=== PATIENT | female | born 1995 | race Native Hawaiian/Other Pacific Islander ===

== ENCOUNTER 2016-07-13 21:05 | Emergency (ER) | payer OTHER ==
[2016-07-13 21:11] VITALS: BP 125/85; PULSE 101; RESP 16; TEMP 98.2; O2SAT 99
--- NOTE | 2016-07-13 21:29 | C.PDOC ---
History Of Present Illness 20 yo female w/o significant PMHx come in for evaluation of URI sx for past 3 days associated with nasal congestion, productive cough with yellow sputum, chest tightness. Pt admits, was unable to sleep last night due to cough. Otherwise, pt denies fever, chills, headache, dizziness, drooling, dysphagia, dyspnea, neck pain, SOB, wheezing, abd. pain, N/V/D, UTI sx, denies recent travel or sick contact. Ambulate to Ed for evaluation, not in any apparent distress. Pt denies control medication use. Time Seen by Provider: 07/13/16 21:13 Chief Complaint (Nursing): Flu-like Symptoms History Per: Patient Onset/Duration Of Symptoms: Gradual Current Symptoms Are (Timing): Still Present Past Medical History Reviewed: Historical Data, Nursing Documentation, Vital Signs Vital Signs: Last Vital Signs Temp 98.2 F 07/13/16 21:08 Pulse 101 H 07/13/16 21:08 Resp 16 07/13/16 21:08 BP 125/85 07/13/16 21:08 Pulse Ox 99 07/13/16 21:31 - Medical History PMH: No Chronic Diseases Denies: Asthma Surgical History: No Surg Hx Family History: States: No Known Family Hx - Social History Hx Alcohol Use: No Hx Substance Use: No - Immunization History Hx Tetanus Toxoid Vaccination: No Hx Influenza Vaccination: No Hx Pneumococcal Vaccination: No Review Of Systems Except As Marked, All Systems Reviewed And Found Negative. Constitutional: Positive for: Chills Eyes: Negative for: Vision Change ENT: Positive for: Nose Discharge, Nose Congestion, Throat Pain, Throat Swelling. Negative for: Ear Discharge Cardiovascular: Negative for: Chest Pain, Palpitations, Edema, Light Headedness Respiratory: Positive for: Cough. Negative for: Shortness of Breath, Wheezing Gastrointestinal: Negative for: Nausea, Vomiting, Abdominal Pain, Diarrhea Genitourinary: Negative for: Dysuria, Frequency, Incontinence Musculoskeletal: Negative for: Neck Pain Skin: Negative for: Rash Neurological: Negative for: Weakness, Numbness, Altered Mental Status, Headache , Dizziness Physical Exam - Physical Exam Appears: Well, Non-toxic, No Acute Distress Skin: Normal Color, Warm, Dry, No Rash Eye(s): bilateral: PERRL Ear(s): Bilateral: Normal Nose: Discharge (B/L nasal congestion with clear rhinorhea) Oral Mucosa: Moist, No Drooling Tongue: Normal Appearing Throat: Erythema (mild B/L), No Exudate, No Drooling Neck: Normal ROM, Trachea Midline, Supple, Other (negative meningeal sign) Cardiovascular: Rhythm Regular Respiratory: No Decreased Breath Sounds, No Accessory Muscle Use, No Stridor, Wheezing (scatteredRight base wheeizng. BS equal B/L.) Gastrointestinal/Abdominal: Soft, No Tenderness, No Distention, No Guarding Back: No CVA Tenderness Extremity: Normal ROM, No Pedal Edema Neurological/Psych: Oriented x3, Normal Speech ED Course And Treatment O2 Sat by Pulse Oximetry: 99 Pulse Ox Interpretation: Normal Progress Note: On re-eval, pt is afebrile , hemodynamicaly stable. PulseOx 99% RA. Neck: (-) meningeal sign. ENT: no acute findings. Lungs: CTA B/L, BS equal B/L. Abd: benign. Pt has clinical findings c/w acute bronchtis. Pt advised. ref. to f/u with PMD in 1`-2 dyas for re-eval. return to ED if any worsening or new changes. Disposition Counseled Patient/Family Regarding: Diagnosis, Need For Followup, Rx Given - Disposition Referrals: [facility] [Outside] Disposition: HOME/ ROUTINE Disposition Time: 21:59 Condition: STABLE Additional Instructions: Take medication as prescribed Encourage fluids Follow up with PM DIN 2-3 days for re-evaluation. Return to ED if any worsening or new changes. Prescriptions: Prednisone [Deltasone] 20 mg PO DAILY #3 tablet Benzonatate [Tessalon Perle] 100 mg PO TID #14 capsule Albuterol HFA [Ventolin HFA 90 mcg/actuation (8 g)] 1 puff IH Q6 #1 inhaler Azithromycin [Zithromax] 250 mg PO DAILY #4 tab Instructions: Acute Bronchitis (ED) - Clinical Impression Clinical Impression: Bronchitis
[2016-07-13] MEDS ORDERED: Albuterol 0.083% Inhal Sol (2.5 mg/3 mL) UD IH STA (21:31)
[2016-07-13] MEDS ORDERED: Albuterol 0.083% Inhal Sol (2.5 mg/3 mL) UD ONE (21:55)
== END 2016-07-13 22:25 | disposition home or self-care (01) ==
LOC: C.ER 21:05
DX: J40 Bronchitis, not specified as acute or chronic (principal)

== ENCOUNTER 2016-09-15 20:47 | Emergency (ER) | payer OTHER ==
[2016-09-15 21:06] VITALS: BP 110/77; PULSE 88; TEMP 98.1
--- NOTE | 2016-09-15 21:18 | C.PDOC ---
History Of Present Illness 20 year old female presents to the ED with complaints of intermittent lower back pain that radiates to buttocks for approximately 4-5 weeks that has worsened today. Patient states she fell while ice skating a few months ago and is unsure if symptoms are related to the fall. She notes performing heavy lifting at work and taking one Aleve today with no relief. Patient denies any recent trauma, bowel or urinary incontinence, extremity weakness or urinary symptoms. Time Seen by Provider: 09/15/16 21:10 Chief Complaint (Nursing): Back Pain History Per: Patient History/Exam Limitations: no limitations Onset/Duration Of Symptoms: Persistent (4-5 weeks) Current Symptoms Are (Timing): Worse Quality Of Discomfort: "Pain" Previous Symptoms: Prior Injury (fallingwhen ice skating a few months ago, but unsure if related to current symptoms. ) Associated Symptoms: denies: Incontinence, New Weakness, New Numbness Recent travel outside of the [place]: No Past Medical History Reviewed: Historical Data, Nursing Documentation, Vital Signs Vital Signs: Last Vital Signs Temp 98.1 F 09/15/16 21:02 Pulse 88 09/15/16 21:02 Resp 20 09/15/16 21:48 BP 110/77 09/15/16 21:02 Pulse Ox - Medical History PMH: No Chronic Diseases Family History: States: Unknown Family Hx - Social History Hx Alcohol Use: No Hx Substance Use: No - Immunization History Hx Tetanus Toxoid Vaccination: No Hx Influenza Vaccination: No Hx Pneumococcal Vaccination: No Review Of Systems Constitutional: Negative for: Fever Gastrointestinal: Negative for: Nausea, Vomiting, Abdominal Pain, Diarrhea, Constipation Genitourinary: Negative for: Dysuria, Frequency, Incontinence, Hematuria, Pelvic Pain Musculoskeletal: Positive for: Back Pain (lower ) Neurological: Negative for: Weakness, Numbness Physical Exam - Physical Exam Appears: Non-toxic, No Acute Distress Skin: Warm, Dry Eye(s): bilateral: Normal Inspection, PERRL, EOMI Neck: Normal ROM, Supple Back: Normal Inspection, No CVA Tenderness, No Vertebral Tenderness, Paraspinal Tenderness (paralumbar tenderness bilaterally ), No Straight Leg Raising Extremity: Normal ROM, No Tenderness, Other (Patient fully ambulatory and good strength of extremities ) Pulses: Left Dorsalis Pedis: Normal, Right Dorsalis Pedis: Normal Neurological/Psych: Oriented x3 Gait: Steady ED Course And Treatment Progress Note: Patient given Motrin and Flexeril by PO and notes improvement of pain. Pt is fully ambulatory at discharge Reassessment Condition: Improved Disposition Counseled Patient/Family Regarding: Diagnosis, Need For Followup - Disposition Referrals: [facility] [Outside] Disposition: HOME/ ROUTINE Disposition Time: 21:40 Condition: STABLE Additional Instructions: Please follow up with with PMD or in our medical clinic Take meds as directed Return to ER if worse Prescriptions: Cyclobenzaprine [Cyclobenzaprine HCl] 10 mg PO HS #10 tab Ibuprofen [Motrin] 600 mg PO Q6H #20 tab Instructions: Lumbar Radiculopathy (ED) - Clinical Impression Clinical Impression: Low back pain - Scribe Statement The provider has reviewed the documentation as recorded by the Scribe Bouchra Cole All medical record entries made by the Scribe were at my direction and personally dictated by me. I have reviewed the chart and agree that the record accurately reflects my personal performance of the history, physical exam, medical decision making, and the department course for this patient. I have also personally directed, reviewed, and agree with the discharge instructions and disposition.
[2016-09-15 21:48] VITALS: RESP 20
== END 2016-09-15 21:48 | disposition home or self-care (01) ==
LOC: C.ER 20:47
DX: M54.5 Low back pain (principal)

== ENCOUNTER 2017-03-15 09:52 | Emergency (ER) | payer OTHER ==
[2017-03-15 10:09] VITALS: O2SAT 100
[2017-03-15] MEDS ORDERED: Sodium Chloride 0.9% 1,000 ML IV STA (10:43)
--- NOTE | 2017-03-15 10:50 | C.PDOC ---
History Of Present Illness 21 y/o F 21 weeks with no complications p/w fever, body aches, nausea, NBNB vomiting x 3 days. Denies sick contacts, recent travel, dysuria, diarrhea, dyspnea. Time Seen by Provider: 03/15/17 10:28 Chief Complaint (Nursing): Fever Past Medical History Vital Signs: Last Vital Signs Temp 99.1 F 03/15/17 12:09 Pulse 96 H 03/15/17 12:09 Resp 18 03/15/17 12:09 BP 104/77 03/15/17 12:09 Pulse Ox 100 03/15/17 12:09 - Medical History PMH: Denies: Asthma Family History: States: Unknown Family Hx - Social History Hx Alcohol Use: No Hx Substance Use: No - Immunization History Hx Tetanus Toxoid Vaccination: No Hx Influenza Vaccination: No Hx Pneumococcal Vaccination: No Review Of Systems Except As Marked, All Systems Reviewed And Found Negative. Respiratory: Negative for: Shortness of Breath Gastrointestinal: Negative for: Abdominal Pain Physical Exam - Physical Exam Additional Physical Exam Comments: Constitutional: No acute distress. Head: Normocephalic. Atraumatic. Eyes: PERRL. ENT: Moist mucous membranes. Neck: Supple. Cardiovascular: Radial pulse 2+ bilaterally. Tachycardic Chest: No tenderness. Respiratory: Clear to auscultation bilaterally. GI: Soft. Nontender. Gravid Uterus Back: No CVA tenderness. Musculoskeletal: No tenderness or swelling of extremities. Skin: No rash. Neurologic: Alert, no focal deficit. ED Course And Treatment - Laboratory Results Result Diagrams: 03/15/17 10:54 03/15/17 10:54 O2 Sat by Pulse Oximetry: 100 (RA) Pulse Ox Interpretation: Normal Medical Decision Making Medical Decision Making: Vital signs normalized. Patient in no acute distress. No ketones on urine. Will discharge home, continue acetaminophen, Tamiflu, oral hydration, f/u OBGYN/PMD, return to ED for worsening vomiting, pain, fever, dyspnea, or any other problem. Disposition - Disposition Disposition: HOME/ ROUTINE Disposition Time: 12:20 Condition: STABLE Prescriptions: Oseltamivir [Tamiflu] 75 mg PO BID #9 cap Instructions: Viral Syndrome (ED) Forms: [employer] (Montenegrin) - Clinical Impression Clinical Impression: Influenza-like illness - Scribe Statement The provider has reviewed the documentation as recorded by the Scribe Maricsa Toribio All medical record entries made by the Yaneli were at my direction and personally dictated by me. I have reviewed the chart and agree that the record accurately reflects my personal performance of the history, physical exam, medical decision making, and the department course for this patient. I have also personally directed, reviewed, and agree with the discharge instructions and disposition.
[2017-03-15] MEDS ORDERED: Sodium Chloride 0.9% 1,000 ML ONE (10:55)
[2017-03-15 11:00] LABS: BASO % 0.3 % (0.0-2.0); EOS # 0.1 K/uL (0.0-0.7); EOS % 0.5 % (0.0-4.0); HEMATOCRIT 30.8 % (34.0-47.0); LYMPH # 1.6 K/uL (1.0-4.3); LYMPH % 13.8 % (20.0-40.0); MEAN CELL VOLUME 86.3 fL (81.0-99.0); MEAN CORPUSCULAR HEMOGLOBIN 29.7 pg (27.0-31.0); MEAN CORPUSCULAR HGB CONC 34.4 g/dL (33.0-37.0); MEAN PLATELET VOLUME 8.3 fL (7.2-11.7); MONO # 1.2 K/uL (0.0-0.8); MONO % 10.3 % (0.0-10.0); RED CELL DISTRIBUTION WIDTH 13.2 % (11.5-14.5); WHITE BLOOD COUNT 11.5 K/uL (4.8-10.8)
[2017-03-15 11:05] LABS: RBC URINE < 1 /hpf (0-3); URINE BACTERIA RARE (<OCC); URINE BILIRUBIN NEGATIVE (NEGATIVE); URINE BLOOD NEGATIVE (NEGATIVE); URINE COLOR Yellow (YELLOW); URINE GLUCOSE (UA) NORMAL (Normal); URINE KETONE NEGATIVE (NEGATIVE); URINE LEUKOCYTE ESTERASE NEG Leu/uL (Negative); URINE PROTEIN NEGATIVE (NEGATIVE); URINE UROBILINOGEN NORMAL mg/dL (0.2-1.0); WBC URINE 1 /hpf (0-5)
[2017-03-15 11:20] LABS: ALKALINE PHOSPHATASE 49 U/L (38-126); ALT/SGPT 25 U/L (9-52); AST/SGOT 25 U/L (14-36); BILIRUBIN,TOTAL 0.5 mg/dL (0.2-1.3); BLOOD UREA NITROGEN 7 mg/dL (7-17); CALCIUM 8.1 mg/dl (8.6-10.4); CARBON DIOXIDE 26 mmol/L (22-30); CHLORIDE 97 mmol/L (98-107); GFR AFRICAN-AMERICAN > 60; GLUCOSE,RANDOM 71 mg/dL (65-105); SODIUM 130 mmol/L (132-148)
[2017-03-15 11:22] LABS: ALB/GLOB RATIO 0.9 (1.0-2.1)
[2017-03-15 12:09] VITALS: BP 104/77; PULSE 96; RESP 18; TEMP 99.1
== END 2017-03-15 12:41 | disposition home or self-care (01) ==
LOC: C.ER 09:52
DX: O26.892 Other specified pregnancy related conditions, second trimester (principal); J11.1 Influenza due to unidentified influenza virus with other respiratory manifestations; Z3A.21 21 weeks gestation of pregnancy
CPT/HCPCS: 80053; 81001; 85025; 87086; 87804; 96360; 99285; J7040

== ENCOUNTER 2017-04-28 06:10 | Emergency (ER) | payer MEDICAID, OTHER ==
[2017-04-28] MEDS ORDERED: Lactated Ringer's 1,000 ML IV ONE (06:40)
[2017-04-28 06:58] VITALS: BMI 22.0
[2017-04-28] MEDS ORDERED: Dextrose 5%/0.9% NS 1,000 ML IV ONE (07:40)
[2017-04-28 08:03] LABS: BASO % 0.1 % (0.0-2.0); EOS # 0.1 K/uL (0.0-0.7); EOS % 0.3 % (0.0-4.0); HEMOGLOBIN 11.3 g/dL (11.0-16.0); LYMPH % 10.7 % (20.0-40.0); MEAN CORPUSCULAR HEMOGLOBIN 27.8 pg (27.0-31.0); MEAN CORPUSCULAR HGB CONC 34.5 g/dL (33.0-37.0); MEAN PLATELET VOLUME 8.4 fL (7.2-11.7); MONO # 1.3 K/uL (0.0-0.8); MONO % 6.8 % (0.0-10.0); NEUT # 15.1 K/uL (1.8-7.0); NEUT % 82.1 % (50.0-75.0); RBC 4.07 Mil/uL (3.80-5.20); RED CELL DISTRIBUTION WIDTH 13.3 % (11.5-14.5)
[2017-04-28 08:07] LABS: MEAN CELL VOLUME 80.7 fL (81.0-99.0); SQUAMOUS EPITHIAL < 1 /hpf (0-5); URINE AMORPHOUS SEDIMENT RARE /ul (<OCC); URINE BILIRUBIN NEGATIVE (NEGATIVE); URINE BLOOD NEGATIVE (NEGATIVE); URINE CLARITY Hazy (Clear); URINE COLOR Yellow (YELLOW); URINE GLUCOSE (UA) NORMAL (Normal); URINE LEUKOCYTE ESTERASE NEG Leu/uL (Negative); URINE NITRATE NEGATIVE (NEGATIVE); URINE PROTEIN NEGATIVE (NEGATIVE); URINE UROBILINOGEN NORMAL mg/dL (0.2-1.0); WHITE BLOOD COUNT 18.4 K/uL (4.8-10.8)
[2017-04-28 08:16] LABS: ALBUMIN 3.4 g/dL (3.5-5.0); ALT/SGPT 15 U/L (9-52); AMYLASE 80 U/L (30-110); AST/SGOT 26 U/L (14-36); BLOOD UREA NITROGEN 6 mg/dL (7-17); CALCIUM 8.7 mg/dl (8.6-10.4); GFR AFRICAN-AMERICAN > 60; GFR NON-AFRICAN AMERICAN > 60; LIPASE 54 U/L (23-300)
[2017-04-28] MEDS ORDERED: Sodium Citrate/Citric Acid 15 ml Sol PO ONE (10:05)
[2017-04-28 14:41] VITALS: BP 106/69; PULSE 86; RESP 20; TEMP 96.7
--- NOTE | 2017-04-29 02:10 | OBHP ---
Datetime: 04/28/2017 07:59 IP Adm Impression: , intrauterine IP Chief Complaint Other: Vomiting since midnight IP Admit Plan: Observation/Evaluation Admit Comment, IP Provider: Patient seen at 0720 hours 21 y.o. , LMP 09/20/16, MAVERICK 06/27/17 EGA 31w 4d c/o vomiting "all night" since midnight. Denies blood in vomitus. Denies headaches, dizziness; feeels a little weak and tired; (+) epigastric pain an d burning sensation. Ate egg salad sandwich from a deli at approximately 1900 hours. Denies fever, chills; no sick contact. No recent travel. 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 Denies STIs; just elegible for Pap PMH: 2017, bronchitis - seen in E.D>; sent home on p.o. antibiotics PSH: denies NKDA Food allergy: seafood = itching to throat, vomiting Meds: PNV Soc Hx: denies tobacco illicit drug or EtOH use. LIves with FOB; together x 1+ years. Works as a [employer] (formerly [employer] Fam Hx: MOther alive 48 - no med issues. Father alive 49 CAD (S/P surgery for "blockage"); pre-DM . No known fam h/o cancer P.E.: as above. Thin, in NAD; appears tired. Awake, alert, oriented to time, person and place. P leasant and cooperative. Accompanied by FOB Assessment: 21 y.o. P0, 31w4d, acute gastroenteritis. Afebrile, vital signs. Category 1 tracing. D/W patient: IVFs, antiemetic, labs. Pt advised, process may proceed to include diarrhea; if this occ urs, allow for increased p.o. intake of fluids such as coconut water, Gatorade to replace electrolyte s. Patient expressed an understanding. Clincally stable. Plan: 1) IVFs 2) Zofran 4 mg IM x 1 3) CBC, Comp panel, amylase, lipase, U/A 4) Observe Addendum: S/P zofran, and IVFs; patient with no further vomiting. C/O mild epigastric discomfort. given bicitra. Tolerated well and discharged home. Advised to eat BRAT-based diet, increase p.o. inta ke of electrolyte rich beverages (coconut water, gatorade) . Keep scheduled appontments. Reviewed S/S PTL. Patient clinicaly stable upon discharge home. Pelvic Type - PN: Adequate Extremities - PN: Normal Abdomen - PN: Normal Back - PN: Normal Breast - PN: Not Done Lungs - PN: Normal Heart - PN: Normal Thyroid - PN: Not Done Neurologic - PN: Normal HEENT - PN: Normal General - PN: Normal FHR - Baseline A Provider: 140 Contraction Comments Provider: 10 minutes Comments, ACOG Physical Exam: Abdomen: Gravid. Soft. Nondistended. Negative Mcfarlane's sign. Minimal m id-epigastric discomfort to deep palpation. Otherwise, non tender. Fundal height 27 cm All other systems reviewed and are negative Gestation - Est Wks by US: 31w 4d EGA AdmitDate IP: 31.3 IP Chief Complaint: Other NICHD Variability Prov Fetus A: Moderate 6-25bpm NICHD Accel Fetus A IP Provider: 15X15 FHR Category Provider Fetus A: Category I NICHD Decel Fetus A IP Provider: None Dilatation, Provider: 0 Effacement, Provider: 0 Station, Provider: floating Genitourinary Exam: Normal DTRs - PN: Not Done
== END 2017-04-28 10:30 | disposition home or self-care (01) ==
LOC: C.EROB 06:10
DX: O99.613 Diseases of the digestive system complicating pregnancy, third trimester (principal); K52.9 Noninfective gastroenteritis and colitis, unspecified; Z3A.31 31 weeks gestation of pregnancy
CPT/HCPCS: 80053; 81001; 82150; 83690; 85025; 96360; 99283; J2405; J7042; J7120

== ENCOUNTER 2017-06-18 13:06 | Emergency (ER) | payer OTHER ==
--- NOTE | 2017-06-18 13:49 | OBDCSUM ---
Datetime: 06/18/2017 13:47 Discharged to, Provider: Home Follow up at, Provider: Clinic Disch Instr Activity: Normal activity Disch Instr Diet: Regular Discharge Instructions, Provider: Routine instructions given Discharge Time: 06/18/2017 13:47 Follow up in weeks, Provider: 06/20/17 Disch Referrals: None Contraception discussed, Prov: No Discharge Comment, Provider: labor precautions given
--- NOTE | 2017-06-18 13:50 | OBHP ---
Datetime: 06/18/2017 13:43 IP Adm Impression: Term, intrauterine IP Admit Plan: Discharge home Admit Comment, IP Provider: 21 y.o. , LMP 09/20/16, MAVERICK 06/27/17 EGA 38.5 wks GA c/o ctx pain ever y 5-10 min 5/10, denies lof, vb, +Fm. pt reports receives are at clinic and is uncomplicated . 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 Denies STIs; just elegible for Pap PMH: 2017, bronchitis - seen in E.D>; sent home on p.o. antibiotics PSH: denies NKDA Food allergy: seafood = itching to throat, vomiting Meds: PNV Soc Hx: denies tobacco illicit drug or EtOH use. LIves with FOB; together x 1+ years. Works as a [employer] @ 38.5 wks GA not in active labor -nst -dc home -labor precautions -has f/u 1 week Pelvic Type - PN: Adequate Extremities - PN: Normal Abdomen - PN: Normal Back - PN: Normal Breast - PN: Not Done Lungs - PN: Normal Heart - PN: Normal Thyroid - PN: Normal Neurologic - PN: Not Done HEENT - PN: Normal General - PN: Normal Presentation-Admit: Vertex FHR - Baseline A Provider: 125 Membranes, Provider: Intact Contraction Comments Provider: q 6 min Gestation - Est Wks by US: 38.5 EGA AdmitDate IP: 38.5 Vital Signs Provider: Reviewed IP Chief Complaint: Uterine contractions NICHD Variability Prov Fetus A: Moderate 6-25bpm NICHD Accel Fetus A IP Provider: Prolonged NICHD Decel Fetus A IP Provider: None Dilatation, Provider: 2 Effacement, Provider: 30 Station, Provider: -3 Genitourinary Exam: Normal DTRs - PN: Normal
--- NOTE | 2017-06-19 12:48 | OBDS ---
DELIVERY PERSONNEL Delivery Doctor: Raghu Loaiza MD Coke Crane Operator: Sarah Caro RN Anesthesiologist: Dr. Angulo Resident: Kristen Yeager student MATERNAL INFORMATION Delivery Anesthesia: Epidural Medications in Delivery: n/a Estimated Blood Loss (ml): 300 Placenta Cultured: No Maternal Complications: None Provider Comments: baby deliverd in lorna. end clean no com LABOR SUMMARY EDC: 06/27/2017 00:00 No. Babies in Womb: 1 Attempted: No Labor Anesthesia: Epidural LABOR INFORMATION Complete Dilatation: 06/19/2017 11:25 Group B Beta Strep: Negative Antibiotics # of Doses: 0 Antibiotics Time of Last Dose: n/a MEMBRANES Membranes Rupture Method: Artificial Rupture of Membranes: 06/19/2017 10:11 Length of Rupture (hrs): 2.37 Amniotic Fluid Color: Clear Amniotic Fluid Amount: Small Amniotic Fluid Odor: None STAGES OF LABOR Stage 2 hrs: 1 Stage 2 min: 8 Stage 3 hrs: 0 Stage 3 min: 2 VAGINAL DELIVERY Episiotomy: Right Mediolateral Laceration Repair: Not Applicable Laceration Repair Note: repaired with 2 vicry and 3 chromic Initial Vag Sponge Count: 10 Initial Vag Sharps Count: 0 Sponge Count Correct: Yes Sharps Count Correct: Yes BABY A INFORMATION Delivery Date/Time: 06/19/2017 12:33 Method of Delivery: Vaginal Born in Route : No : N/A Forceps: N/A Vacuum Extraction: N/A Shoulder Dystocia : No SHOULDER DYSTOCIA BABY A Infant Delivery Date/Time: 06/19/2017 12:33 PRESENTATION/POSITION BABY A Presentation: Cephalic Cephalic Presentation: Face Vertex Position: Left Occipital Posterior Breech Presentation: N/A PLACENTA INFORMATION BABY A Placenta Delivery Time : 06/19/2017 12:35 Placenta Method of Delivery: Spontaneous Placenta Status: Delivered SCORES BABY A Heart Rate 1 min: >100 bpm Resp Effort 1 min: Good Cry Reflex Irritability 1 min: Cough or Sneeze or Pulls Away Muscle Tone 1 min: Active Motion Color 1 min: Body [place], Extremities Blue SCORE 1 MIN: 9 Heart Rate 5 min: >100 bpm Resp Effort 5 min: Good Cry Reflex Irritability 5 min: Cough or Sneeze or Pulls Away Muscle Tone 5 min: Active Motion Color 5 min: Body [place], Extremities Blue SCORE 5 MIN: 9 INFORMATION BABY A Gestational Age at Delivery: 38.6 Gestational Status: Term Outcome : Liveborn Condition : Stable Sex: Female IDENTIFICATION/MEDS BABY A ID Band Number: [id number] ID Band Location: Left Leg; Left Arm Sensor Applied: Yes Sensor Number: [id number] Sensor Location : Cord Clamp WEIGHT/LENGTH BABY A Birthweight (gms): 3190 Weight (lb): 7 Infant Weight (oz): 0 Infant Length Inches: 19.00 Infant Length cms: 48.3 CORD INFORMATION BABY A No. Cord Vessels: 3 Nuchal Cord : N/A Cord Blood Taken: Yes Infant Suction: Mouth; Nose
== END 2017-06-18 14:00 | disposition home or self-care (01) ==
LOC: C.EROB 13:06
DX: O47.1 False labor at or after 37 completed weeks of gestation (principal); Z3A.38 38 weeks gestation of pregnancy

== ENCOUNTER 2017-06-19 00:27 | Inpatient (IN) | payer OTHER ==
[2017-06-19] MEDS ORDERED: Lactated Ringer's 1,000 ML IV SCH ×2 (01:00→08:15)
[2017-06-19] MEDS ORDERED: Nalbuphine 20 mg/ml Inj (1 ml) IVP PRN (01:00)
--- NOTE | 2017-06-19 01:00 | OBHP ---
Datetime: 06/19/2017 00:55 IP Adm Impression: Term, intrauterine IP Admit Plan: Observation/Evaluation Admit Comment, IP Provider: 21 y.o. , LMP 09/20/16, MAVERICK 06/27/17 EGA 38.6 wks GA c/o ctx pain ever y 5 min 01/01, denies lof, vb, +Fm. pt reports receives are at clinic and is uncomplicated. 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 Denies STIs; just elegible for Pap PMH: 2017, bronchitis - seen in E.D>; sent home on p.o. antibiotics PSH: denies NKDA Food allergy: seafood = itching to throat, vomiting Meds: PNV Soc Hx: denies tobacco illicit drug or EtOH use. LIves with FOB; together x 1+ years. 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, for therapuetic rest -npo, ivf -labs -Pain meds: IV Nubain, IM Phenegan -Revaluation Pelvic Type - PN: Adequate Extremities - PN: Normal Abdomen - PN: Normal Back - PN: Normal Breast - PN: Not Done Lungs - PN: Normal Heart - PN: Normal Thyroid - PN: Normal Neurologic - PN: Not Done HEENT - PN: Normal General - PN: Normal Presentation-Admit: Vertex FHR - Baseline A Provider: 120 Membranes, Provider: Intact Contraction Comments Provider: q 6 min Gestation - Est Wks by US: 38.6 EGA AdmitDate IP: 38.6 Vital Signs Provider: Reviewed; Within Normal Limits IP Chief Complaint: Uterine contractions NICHD Variability Prov Fetus A: Moderate 6-25bpm NICHD Accel Fetus A IP Provider: 15X15 FHR Category Provider Fetus A: Category I NICHD Decel Fetus A IP Provider: None Dilatation, Provider: 3 Effacement, Provider: 60 Station, Provider: -2 Genitourinary Exam: Normal DTRs - PN: Normal
[2017-06-19 03:36] LABS: BASO # 0.1 K/uL (0.0-0.2); BASO % 0.7 % (0.0-2.0); EOS # 0.1 K/uL (0.0-0.7); EOS % 0.8 % (0.0-4.0); HEMOGLOBIN 9.9 g/dL (11.0-16.0); LYMPH # 2.7 K/uL (1.0-4.3); MEAN CELL VOLUME 74.1 fL (81.0-99.0); MEAN CORPUSCULAR HEMOGLOBIN 24.4 pg (27.0-31.0); MONO # 0.8 K/uL (0.0-0.8); MONO % 6.7 % (0.0-10.0); NEUT # 7.9 K/uL (1.8-7.0); NEUT % 68.8 % (50.0-75.0); NRBC % 0.1 % (0.0-2.0); RBC 4.04 Mil/uL (3.80-5.20); RED CELL DISTRIBUTION WIDTH 16.3 % (11.5-14.5); WHITE BLOOD COUNT 11.5 K/uL (4.8-10.8)
[2017-06-19 03:38] LABS: SQUAMOUS EPITHIAL 7 /hpf (0-5); URINE BILIRUBIN NEGATIVE (NEGATIVE); URINE BLOOD NEGATIVE (NEGATIVE); URINE CLARITY Clear (Clear); URINE COLOR Straw (YELLOW); URINE GLUCOSE (UA) NORMAL (Normal); URINE LEUKOCYTE ESTERASE TRACE Leu/uL (Negative); URINE PROTEIN NEGATIVE (NEGATIVE); URINE UROBILINOGEN NORMAL mg/dL (0.2-1.0)
[2017-06-19 03:46] LABS: ALB/GLOB RATIO 0.9 (1.0-2.1); AST/SGOT 22 U/L (14-36); BLOOD UREA NITROGEN 7 mg/dL (7-17); CALCIUM 8.5 mg/dl (8.6-10.4); GFR AFRICAN-AMERICAN > 60; GFR NON-AFRICAN AMERICAN > 60
[2017-06-19 03:48] LABS: ALT/SGPT < 6 U/L (9-52)
--- NOTE | 2017-06-19 08:07 | OBADHP ---
Datetime: 06/19/2017 07:16 Admit Comment, IP Provider: pt was here with uterine ctxs from yesterday night. pt took ub/phenargan . ve /-1 plan admit for l_d npo/ivflabs pain manag pitocin anticipate Pelvic Type - PN: Adequate Extremities - PN: Normal Abdomen - PN: Normal Back - PN: Normal Breast - PN: Normal Lungs - PN: Normal Heart - PN: Normal Thyroid - PN: Normal Neurologic - PN: Normal HEENT - PN: Normal General - PN: Normal FHR - Baseline A Provider: 130 Contraction Comments Provider: q1-4 IP Hx Assessment: The History has been Reviewed and is Current Vital Signs Provider: Reviewed IP Chief Complaint: Uterine contractions NICHD Variability Prov Fetus A: Moderate 6-25bpm NICHD Accel Fetus A IP Provider: 15X15 FHR Category Provider Fetus A: Category I Dilatation, Provider: 4 Effacement, Provider: 80 Station, Provider: -1 Genitourinary Exam: Normal DTRs - PN: Normal EGA AdmitDate IP: 38.6 IP Adm Impression: Term, intrauterine ; Active labor IP Admit Plan: Admit to unit; Initiate labor protocol Datetime: 06/19/2017 00:55 Presentation-Admit: Vertex Membranes, Provider: Intact Gestation - Est Wks by US: 38.6 NICHD Decel Fetus A IP Provider: None Datetime: 04/28/2017 07:59 IP Chief Complaint Other: Vomiting since midnight Comments, ACOG Physical Exam: Abdomen: Gravid. Soft. Nondistended. Negative Mcfarlane's sign. Minimal m id-epigastric discomfort to deep palpation. Otherwise, non tender. Fundal height 27 cm All other systems reviewed and are negative
[2017-06-19] MEDS ORDERED: Oxytocin 10 Units/ml Inj IV ONE (08:09)
[2017-06-19] MEDS ORDERED: Oxytocin 30 UNIT 30 UNITS/500 ML BAG IV PRN (08:10)
[2017-06-19] MEDS ORDERED: Oxytocin 30 UNIT 30 UNITS/500 ML BAG IV ONE (08:41)
[2017-06-19] MEDS ORDERED: Bupivacaine HCl 0.25% PF (10 ml) Inj ONE (09:17)
[2017-06-19] MEDS ORDERED: Bupivacaine HCl/FentaNYL Cit 100 ML EPI ONE (09:17)
[2017-06-19] MEDS ORDERED: Lidocaine 2% Inj (20ml) ONE (11:49)
[2017-06-19] MEDS ORDERED: Benzocaine/Menthol 20%-0.5% Topical Spray (60 ml) TOP PRN (12:18)
[2017-06-19] MEDS ORDERED: Oxycodone/Acetaminophen 5/325 mg Tab PO PRN ×2 (12:18)
[2017-06-19] MEDS ORDERED: Oxytocin 30 UNIT 30 UNITS/500 ML BAG IV SCH (12:30)
[2017-06-20 08:04] LABS: RED CELL DISTRIBUTION WIDTH 16.9 % (11.5-14.5)
[2017-06-20 08:12] LABS: HEMOGLOBIN 9.4 g/dL (11.0-16.0); MEAN CELL VOLUME 74.1 fL (81.0-99.0); MEAN CORPUSCULAR HEMOGLOBIN 24.3 pg (27.0-31.0); MEAN CORPUSCULAR HGB CONC 32.8 g/dL (33.0-37.0); MEAN PLATELET VOLUME 8.5 fL (7.2-11.7); RBC 3.88 Mil/uL (3.80-5.20)
[2017-06-20 08:14] LABS: WHITE BLOOD COUNT 17.9 K/uL (4.8-10.8)
--- NOTE | 2017-06-20 12:56 | OBPPN ---
Datetime: 06/20/2017 06:56 PP Pain Prov: Within normal limits PP Nausea Prov: Denies PP Flatus Prov: Yes PP BM Prov: No PP Breasts Prov: Not Done PP Heart Prov: Normal PP Lungs Prov: Normal PP Abdomen/Uterus Prov: Normal PP Lochia Prov: Not Done PP Vulva/Perineum Prov: Not Done PP CVA Tenderness Prov: Not Done PP Extremities Prov: Normal PP Impression Prov: Normal progression PP Plan Prov: Continue present management PP Progress Note Prov: Subjective: Patient seen and examined. No acute events overnight. States she is experiencing discomfort near e pisotomy incision site. Admits to vaginal bleeding, quanity being described as more than her normal p eriod. Admits to tolerating diet, passing faltus, and ambulating. Denies fever, chills, chest pain, S OB, N.V, and urinary symptoms. Physical Examination: As above Assessment and Plan: Patient is a 21 year old female who is s/p vaginal delievery day 1. Post State - continue current managment - pain control via motrin and percocet - encourage ambulation Microcytic Anemia - hemoglobin reviewed, trended, and appreciated - continue with feosol Difficulty Breast Feeding - laxation specialist consulted- appreicate recommendations Patient will be seen with, case reviewed with, and plan approved by attending physician, Dr. Delgado . pt seen adn examined agree iwht above pain controlled ambuitng voiding, dizzyness, cp, sob plna encouarge bresat feedng, ambuating, IP PP Procedures: None
[2017-06-21 08:32] VITALS: BP 100/66; PULSE 70; RESP 18; O2SAT 99
[2017-06-21 11:25] LABS: BASO # 0.1 K/uL (0.0-0.2); BASO % 0.4 % (0.0-2.0); EOS # 0.3 K/uL (0.0-0.7); EOS % 1.6 % (0.0-4.0); HEMOGLOBIN 10.3 g/dL (11.0-16.0); LYMPH # 2.7 K/uL (1.0-4.3); LYMPH % 17.3 % (20.0-40.0); MEAN CELL VOLUME 75.3 fL (81.0-99.0); MEAN CORPUSCULAR HEMOGLOBIN 24.2 pg (27.0-31.0); MEAN CORPUSCULAR HGB CONC 32.1 g/dL (33.0-37.0); MEAN PLATELET VOLUME 8.5 fL (7.2-11.7); MONO # 0.9 K/uL (0.0-0.8); MONO % 5.9 % (0.0-10.0); NEUT # 11.6 K/uL (1.8-7.0); NEUT % 74.8 % (50.0-75.0); RBC 4.25 Mil/uL (3.80-5.20); RED CELL DISTRIBUTION WIDTH 16.8 % (11.5-14.5); WHITE BLOOD COUNT 15.6 K/uL (4.8-10.8)
[2017-06-21 19:22] VITALS: TEMP 99
== END 2017-06-21 15:20 | disposition home or self-care (01) | DRG 373 ==
LOC: C.EROB 00:27 → C.4D 08:06 → C.4M 14:22
PROVIDERS: ADMIT Obstetrics & Gynecology; ATTEND Obstetrics & Gynecology
PROC: 10E0XZZ Delivery of Products of Conception, External Approach (ICD-10-PCS; principal; 2017-06-19)
PROC: 0W8NXZZ Division of Female Perineum, External Approach (ICD-10-PCS; 2017-06-19)
DX: O99.02 Anemia complicating childbirth (principal); D50.9 Iron deficiency anemia, unspecified; Z3A.38 38 weeks gestation of pregnancy; Z37.0 Single live birth

== ENCOUNTER 2017-11-20 15:08 | Emergency (ER) | payer SELFPAY ==
[2017-11-20 15:08] VITALS: BMI 22.0
[2017-11-20 15:16] VITALS: RESP 18; O2SAT 100
[2017-11-20] MEDS ORDERED: Sodium Chloride 0.9% 1,000 ML IV ONE (15:42)
--- NOTE | 2017-11-20 15:53 | C.PDOC ---
History Of Present Illness 21 y/o female presents to the ED complaining of lower abdominal pain for 2 weeks. Of note patient delivered her baby 5 months ago. LMP was in August. States she is not , but she is complaining of occasional spotting and a fever. Patient notes that she feels she spots when she is carrying her daughter around and exerting herself. 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 Otherwise she denies any dizziness, chest pain, SOB, nausea, vomiting, or other complaints. Time Seen by Provider: 11/20/17 15:40 Chief Complaint (Nursing): Abdominal Pain History Per: Patient History/Exam Limitations: no limitations Onset/Duration Of Symptoms: Days Current Symptoms Are (Timing): Still Present Location Of Pain/Discomfort: Suprapubic Exacerbating Factors: Movement Abnormal Vaginal Bleeding: Yes Past Medical History Reviewed: Historical Data, Nursing Documentation, Vital Signs Vital Signs: Last Vital Signs Temp 100.7 F H 11/20/17 17:30 Pulse 97 H 11/20/17 17:30 Resp 18 11/20/17 17:30 BP 105/69 11/20/17 17:30 Pulse Ox 100 11/20/17 17:45 - Medical History PMH: Denies: Asthma, Depression, Diabetes, HTN - [facility] Procedures DELIVERY OF PRODUCTS OF CONCEPTION, EXTERNAL APPROACH (06/19/17) DIVISION OF FEMALE PERINEUM, EXTERNAL APPROACH (06/19/17) Family History: States: Unknown Family Hx - Social History Hx Alcohol Use: No Hx Substance Use: No - Immunization History Hx Tetanus Toxoid Vaccination: No Hx Influenza Vaccination: No Hx Pneumococcal Vaccination: No Review Of Systems Except As Marked, All Systems Reviewed And Found Negative. Constitutional: Positive for: Fever Cardiovascular: Negative for: Chest Pain Respiratory: Negative for: Shortness of Breath Gastrointestinal: Positive for: Abdominal Pain. Negative for: Vomiting, Diarrhea Genitourinary: Positive for: Vaginal Bleeding Neurological: Negative for: Weakness, Numbness, Dizziness Physical Exam - Physical Exam Appears: Non-toxic, No Acute Distress Skin: Normal Color, Warm, Dry Head: Atraumatic, Normacephalic Eye(s): bilateral: Normal Inspection Nose: Normal Oral Mucosa: Moist Neck: Normal ROM Chest: Symmetrical Cardiovascular: Rhythm Regular, No Murmur Respiratory: Normal Breath Sounds, No Rales, No Rhonchi, No Wheezing Gastrointestinal/Abdominal: Soft, Tenderness (mild suprapubic tenderness), No Guarding, No Rebound Back: Normal Inspection, No CVA Tenderness, No Vertebral Tenderness Extremity: Bilateral: Atraumatic, Normal Color And Temperature, Normal ROM Neurological/Psych: Oriented x3, Normal Speech Gait: Steady ED Course And Treatment - Laboratory Results Result Diagrams: 11/20/17 16:05 11/20/17 16:05 Lab Interpretation: No Acute Changes Urine POC: Negative O2 Sat by Pulse Oximetry: 100 (RA) Pulse Ox Interpretation: Normal - CT Scan/US No standard instances Other Rad Studies (CT/US): Read By Radiologist, Radiology Report Reviewed CT/US Interpretation: FINDINGS: UTERUS: Measures 6.6 x 3.3 x 4.5 cm. Normal in size and appearance. No fibroid or other mass lesion seen. ENDOMETRIUM: Measures 4 mm in diameter. Unremarkable. CERVIX: No cervical abnormality identified. RIGHT OVARY: Measures 3.5 x 1.7 x 2.9 cm. No solid mass. Normal flow. LEFT OVARY: Measures 3.4 x 1.6 x 2.7 cm. No solid mass. Normal flow. FREE FLUID: No significant free fluid noted. OTHER FINDINGS: None. IMPRESSION: Unremarkable pelvic ultrasound. Progress Note: Blood work and urine sent. Administered IV fluids and 975 mg Tylenol PO. Ordered transvaginal ultrasound. On re-evaluation abdomen soft Reassessment Condition: Improved Disposition Counseled Patient/Family Regarding: Studies Performed, Diagnosis, Need For Followup, Rx Given - Disposition Disposition: HOME/ ROUTINE Disposition Time: 18:00 Condition: STABLE Prescriptions: Cephalexin [cephalexin] 500 mg PO Q6 #28 cap Instructions: Urinary Tract Infections in Adults Forms: [facility] (Greenlandic) - POA Present On Arrival: None - Clinical Impression Clinical Impression: Abdominal pain, UTI (urinary tract infection) - PA / LAB ANALYST / Resident Statement MD/DO has reviewed & agrees with the documentation as recorded. - Scribe Statement The provider has reviewed the documentation as recorded by the Scribe (Becca Moore) All medical record entries made by the Scribe were at my direction and personally dictated by me. I have reviewed the chart and agree that the record accurately reflects my personal performance of the history, physical exam, medical decision making, and the department course for this patient. I have also personally directed, reviewed, and agree with the discharge instructions and disposition.
[2017-11-20 16:10] LABS: BASO % 0.2 % (0.0-2.0); EOS # 0.1 K/uL (0.0-0.7); EOS % 0.7 % (0.0-4.0); LYMPH # 2.1 K/uL (1.0-4.3); LYMPH % 16.8 % (20.0-40.0); MEAN CELL VOLUME 76.2 fL (81.0-99.0); MEAN CORPUSCULAR HEMOGLOBIN 25.3 pg (27.0-31.0); MEAN CORPUSCULAR HGB CONC 33.2 g/dL (33.0-37.0); MEAN PLATELET VOLUME 7.4 fL (7.2-11.7); MONO # 0.9 K/uL (0.0-0.8); MONO % 7.6 % (0.0-10.0); NEUT # 9.2 K/uL (1.8-7.0); NEUT % 74.7 % (50.0-75.0); NRBC % 0.1 % (0.0-2.0); RBC 4.75 Mil/uL (3.80-5.20); RED CELL DISTRIBUTION WIDTH 14.9 % (11.5-14.5); WHITE BLOOD COUNT 12.3 K/uL (4.8-10.8)
[2017-11-20 16:13] LABS: HCG,QUALITATIVE URINE NEGATIVE (NEGATIVE)
[2017-11-20 16:14] LABS: SQUAMOUS EPITHIAL 1 /hpf (0-5); URINE BACTERIA RARE (<OCC); URINE BILIRUBIN NEGATIVE (NEGATIVE); URINE BLOOD 2+ (NEGATIVE); URINE CLARITY Clear (Clear); URINE COLOR Straw (YELLOW); URINE GLUCOSE (UA) NORMAL (Normal); URINE LEUKOCYTE ESTERASE 3+ Leu/uL (Negative); URINE PROTEIN NEGATIVE (NEGATIVE); URINE UROBILINOGEN NORMAL mg/dL (0.2-1.0)
[2017-11-20 16:22] LABS: ALB/GLOB RATIO 1.4 (1.0-2.1); ALBUMIN 4.3 g/dL (3.5-5.0); ALT/SGPT 38 U/L (9-52); AST/SGOT 26 U/L (14-36); BLOOD UREA NITROGEN 11 mg/dL (7-17); CALCIUM 9.1 mg/dl (8.6-10.4); GFR NON-AFRICAN AMERICAN > 60; LIPASE 49 U/L (23-300)
[2017-11-20] MEDS ORDERED: cefTRIAXone IV 1 gm in Dextros 50 ML IV ONE (16:34)
[2017-11-20] MEDS ORDERED: Sodium Chloride 0.9% 1,000 ML ONE (16:44)
--- NOTE | 2017-11-20 17:32 | US ---
Date of service: 11/20/2017 HISTORY: vaginal bleeding COMPARISON: None available. TECHNIQUE: Grayscale, color Doppler and spectral evaluation the pelvis performed transabdominally and transvaginally. FINDINGS: UTERUS: Measures 6.6 x 3.3 x 4.5 cm. Normal in size and appearance. No fibroid or other mass lesion seen. ENDOMETRIUM: Measures 4 mm in diameter. Unremarkable. CERVIX: No cervical abnormality identified. RIGHT OVARY: Measures 3.5 x 1.7 x 2.9 cm. No solid mass. Normal flow. LEFT OVARY: Measures 3.4 x 1.6 x 2.7 cm. No solid mass. Normal flow. FREE FLUID: No significant free fluid noted. OTHER FINDINGS: None. IMPRESSION: Unremarkable pelvic ultrasound.
[2017-11-20 17:34] VITALS: BP 105/69; PULSE 97; TEMP 100.7
== END 2017-11-20 18:20 | disposition home or self-care (01) ==
LOC: C.ER 15:08
DX: N39.0 Urinary tract infection, site not specified (principal); R10.30 Lower abdominal pain, unspecified
CPT/HCPCS: 76830; 76856; 80053; 81001; 83690; 84703; 85025; 96361; 96365; 99285; J0696; J7030; J7050

== ENCOUNTER 2018-06-29 04:20 | Emergency (ER) | payer MEDICAID, OTHER ==
[2018-06-29 04:21] VITALS: BMI 21.2
[2018-06-29 04:30] VITALS: TEMP 98.1; O2SAT 100
[2018-06-29] MEDS ORDERED: Sodium Chloride 0.9% 1,000 ML IV STA (04:57)
[2018-06-29] MEDS ORDERED: Sodium Chloride 0.9% 1,000 ML ONE (05:14)
[2018-06-29 05:32] LABS: BASO % 0.4 % (0.0-2.0); EOS # 0.1 K/uL (0.0-0.7); HEMOGLOBIN 13.3 g/dL (11.0-16.0); LYMPH # 3.3 K/uL (1.0-4.3); MEAN CELL VOLUME 79.9 fL (81.0-99.0); MEAN CORPUSCULAR HEMOGLOBIN 26.2 pg (27.0-31.0); MEAN CORPUSCULAR HGB CONC 32.8 g/dL (33.0-37.0); MEAN PLATELET VOLUME 8.1 fL (7.2-11.7); MONO # 0.6 K/uL (0.0-0.8); MONO % 5.4 % (0.0-10.0); NEUT # 6.9 K/uL (1.8-7.0); NEUT % 63.2 % (50.0-75.0); RBC 5.1 Mil/uL (3.80-5.20); RED CELL DISTRIBUTION WIDTH 15.1 % (11.5-14.5)
[2018-06-29 05:38] VITALS: RESP 18
[2018-06-29 05:46] LABS: BLOOD UREA NITROGEN 13 mg/dL (7-17); CALCIUM 9.5 mg/dl (8.6-10.4); GFR NON-AFRICAN AMERICAN > 60
--- NOTE | 2018-06-29 06:24 | C.PDOC ---
History Of Present Illness 22-year-old female presents to the emergency department with complaints of headache, dizziness, chest pain, palpitations, and hands feeling numb and cold which lasted about 45 minutes. Patient states that now shes a little bit dizzy and they said her chest symptoms have calm down. Patient reports pain in her left side of her neck Time Seen by Provider: 06/29/18 04:42 Chief Complaint (Nursing): Chest Pain History Per: Patient History/Exam Limitations: no limitations Onset/Duration Of Symptoms: Mins (45) Current Symptoms Are (Timing): Better Quality: "Pain" Past Medical History Reviewed: Historical Data, Nursing Documentation, Vital Signs Vital Signs: Last Vital Signs Temp 98.1 F 06/29/18 04:27 Pulse 60 06/29/18 05:30 Resp 18 06/29/18 05:30 BP 106/80 06/29/18 05:30 Pulse Ox 100 06/29/18 05:30 - Medical History PMH: Denies: Asthma, Depression, Diabetes, HTN Surgical History: No Surg Hx - [facility] Procedures DELIVERY OF PRODUCTS OF CONCEPTION, EXTERNAL APPROACH (06/19/17) DIVISION OF FEMALE PERINEUM, EXTERNAL APPROACH (06/19/17) Family History: States: No Known Family Hx - Social History Hx Alcohol Use: No Hx Substance Use: No - Immunization History Hx Tetanus Toxoid Vaccination: No Hx Influenza Vaccination: No Hx Pneumococcal Vaccination: No Review Of Systems Constitutional: Negative for: Fever, Chills, Weakness Eyes: Negative for: Redness, Other (scleral icterus) ENT: Negative for: Mouth Swelling Cardiovascular: Positive for: Chest Pain, Palpitations Respiratory: Negative for: Cough, Shortness of Breath Gastrointestinal: Negative for: Nausea, Vomiting, Diarrhea Musculoskeletal: Positive for: Neck Pain. Negative for: Back Pain Neurological: Positive for: Numbness, Headache, Dizziness. Negative for: Weakness Physical Exam - Physical Exam Appears: Non-toxic, No Acute Distress, Other (calm, resting quietly) Skin: Normal Color, Warm, Dry, No Rash Head: Atraumatic, Normacephalic Eye(s): bilateral: Normal Inspection, PERRL, EOMI Nose: Normal Oral Mucosa: Moist Neck: Normal, Normal ROM, No Midline Cervical Tenderness, No Paracervical Tenderness, Supple Chest: Symmetrical, No Tenderness Cardiovascular: Rhythm Regular, No Murmur Respiratory: Normal Breath Sounds, No Rales, No Rhonchi, No Wheezing Gastrointestinal/Abdominal: Soft, No Tenderness, No Guarding, No Rebound Extremity: Normal ROM Extremity: Bilateral: Atraumatic Neurological/Psych: Oriented x3, Normal Speech, Normal Cognition, Normal Motor, Normal Sensation ED Course And Treatment - Laboratory Results Result Diagrams: 06/29/18 05:29 06/29/18 05:29 O2 Sat by Pulse Oximetry: 100 (RA) Pulse Ox Interpretation: Normal Medical Decision Making Medical Decision Making: Plan: BMP CBC NaCl IV Fluids Toradol 15mg PO Zofran 4mg IVP POC Urine Patient states that her dizziness is improving. Patient denies pain in the left side of her neck. Of note, patient boyfriend add that she had had multiple episodes of these symptoms but never got checked out. All episodes have resolve spontaneously. Patient told to follow up in clinic. Disposition Counseled Patient/Family Regarding: Diagnosis, Need For Followup - Disposition Referrals: [facility] [Outside] Disposition: HOME/ ROUTINE Disposition Time: 06:23 Condition: STABLE Instructions: Anxiety, Adult (DC) Forms: [facility] (Arabic), General Discharge Instructions - Clinical Impression Clinical Impression: Anxiety attack - PA / OPERATOR PREFINISH / Resident Statement MD/DO has reviewed & agrees with the documentation as recorded. - Scribe Statement The provider has reviewed the documentation as recorded by the Scribe (Cullen Iqbal) All medical record entries made by the Scribe were at my direction and personally dictated by me. I have reviewed the chart and agree that the record accurately reflects my personal performance of the history, physical exam, medical decision making, and the department course for this patient. I have also personally directed, reviewed, and agree with the discharge instructions and disposition.
[2018-06-29 06:37] VITALS: BP 107/69; PULSE 69
== END 2018-06-29 06:53 | disposition home or self-care (01) ==
LOC: C.ER 04:20
DX: F41.9 Anxiety disorder, unspecified (principal)
CPT/HCPCS: 80048; 81025; 85025; 96361; 96374; 96375; 99284; J1885; J2405; J7040